=== PATIENT | male | born 1960 | race Caucasian/White ===

== ENCOUNTER 2023-04-16 09:27 | Outpatient (RCR) | payer OTHER, SELFPAY | END 2023-04-16 23:59 | disposition home or self-care (01) | LOC: RPT 09:27 | PROVIDERS: ATTENDING PHYSICIAN Family Medicine | DX: M25.512 Pain in left shoulder (principal); Z73.6 Limitation of activities due to disability | CPT/HCPCS: 97110; 97140; 97161 ==

== ENCOUNTER 2023-04-24 15:59 | Outpatient (RCR) | payer OTHER, SELFPAY | END 2023-04-24 23:59 | disposition home or self-care (01) | LOC: RPT 15:59 | PROVIDERS: ATTENDING PHYSICIAN Family Medicine | DX: M25.512 Pain in left shoulder (principal); Z73.6 Limitation of activities due to disability | CPT/HCPCS: 97010; 97110; 97140 ==

== ENCOUNTER → 2023-08-18 07:26 | Outpatient (REF) | payer OTHER, SELFPAY | LOC: HWRAD 07:26 | PROVIDERS: ATTENDING PHYSICIAN Family Medicine | DX: R31.9 Hematuria, unspecified (principal) | CPT/HCPCS: 74176 ==

== ENCOUNTER → 2023-09-03 06:34 | Outpatient (REF) | payer OTHER, SELFPAY | LOC: MRI 06:34 | PROVIDERS: ATTENDING PHYSICIAN Specialist; FAMILY PHYSICIAN Family Medicine | DX: M25.512 Pain in left shoulder (principal) | CPT/HCPCS: 73221 ==

== ENCOUNTER → 2023-10-09 07:43 | Outpatient (REF) | payer OTHER, SELFPAY | LOC: HWRAD 07:43 | PROVIDERS: ATTENDING PHYSICIAN Specialist; FAMILY PHYSICIAN Family Medicine | DX: N20.1 Calculus of ureter (principal); N20.0 Calculus of kidney | CPT/HCPCS: 76775 ==

== ENCOUNTER → 2024-01-16 15:40 | Outpatient (REF) | payer OTHER, SELFPAY | LOC: HWRAD 15:40 | PROVIDERS: ATTENDING PHYSICIAN Specialist; FAMILY PHYSICIAN Family Medicine | DX: N20.1 Calculus of ureter (principal); N20.0 Calculus of kidney | CPT/HCPCS: 74176 ==

== ENCOUNTER 2024-02-04 06:20 | Day surgery (SDC) | payer OTHER, SELFPAY ==
[2024-01-26 08:26] VITALS: BMI 33.8
[2024-01-26 08:55] LABS: Hematocrit 45.2 % (39.0-52.0); Mean Corp Hgb Conc. 33.2 g/dL (33.0-37.0); Mean Corpuscular Hgb 29.2 pg (27.0-31.0); Mean Corpuscular Volume 88.1 fL (80.0-94.0); Mean Platelet Volume 9.7 fL (7.4-10.4); Platelet Count 308 10^3/uL (130-400); Red Blood Cell Count 5.13 10^6/uL (4.70-6.10); Red Cell Dist. Width 13.4 % (11.5-14.5); White Blood Cell Count 5.1 10^3/uL (4.8-10.8)
[2024-01-26 09:21] LABS: Blood Urea Nitrogen 25 mg/dl (9-20); Calcium 9.4 mg/dl (8.4-10.2); Carbon Dioxide 28 mmol/L (22-30); Chloride 102 mmol/L (98-107); Estimated Creatinine Clearance 95 ml/min; Glucose 165 mg/dl (70-99); Potassium 4.1 mmol/L (3.5-5.1); Sodium 141 mmol/L (135-145); eGFR > 60.00
[2024-02-04] VITALS (7 sets, daily range): BP systolic 110–159; BP diastolic 68–95; BMI 33.8
[2024-02-04 09:00] LABS: Glucose - Point of Care 180 mg/dl (70-99)
[2024-02-04] MEDS: TYLENOL 1000 MG PO (10:18)
[2024-02-04 11:38] LABS: Glucose - Point of Care 140 mg/dl (70-99)
[2024-02-04] MEDS: Pyridium 200 MG PO (12:50)
[2024-02-04] MEDS: FLOMAX 0.4 MG PO (13:41)
[2024-02-04] MEDS: TORADOL 15 MG IV (13:41)
[2024-02-09 11:53] LABS: Stone Analysis Mass 85 mg
== END 2024-02-04 14:16 | disposition home or self-care (01) ==
LOC: SDS 06:20
PROVIDERS: ATTENDING PHYSICIAN Specialist; FAMILY PHYSICIAN Family Medicine
DX: N20.2 Calculus of kidney with calculus of ureter (principal); R31.0 Gross hematuria
CPT/HCPCS: 52356; 36415; 74018; 76000; 80048; 82365; 82962; 85027; 93005; C1894; C2617

== ENCOUNTER → 2024-09-30 14:24 | Outpatient (REF) | payer MEDICARE, SELFPAY | LOC: HWRAD 14:24 | PROVIDERS: ATTENDING PHYSICIAN Family Medicine | DX: R10.9 Unspecified abdominal pain (principal) | CPT/HCPCS: 74176 ==

== ENCOUNTER 2024-12-15 06:16 | Day surgery (SDC) | payer MEDICARE, SELFPAY ==
[2024-12-15 07:21] LABS: Glucose - Point of Care 109 mg/dl (70-99)
== END 2024-12-15 08:52 | disposition home or self-care (01) ==
LOC: GI 06:16
PROVIDERS: ATTENDING PHYSICIAN Internal Medicine
DX: Z12.11 Encounter for screening for malignant neoplasm of colon (principal); K64.8 Other hemorrhoids; K57.30 Diverticulosis of large intestine without perforation or abscess without bleeding; D12.2 Benign neoplasm of ascending colon; K63.5 Polyp of colon
CPT/HCPCS: 45380; 82962; 88305

== ENCOUNTER → 2025-01-25 14:45 | Outpatient (REF) | payer MEDICARE, SELFPAY | LOC: HWRAD 14:45 | PROVIDERS: ATTENDING PHYSICIAN Family Medicine | DX: R10.20 Pelvic and perineal pain unspecified side (principal); R82.998 Other abnormal findings in urine | CPT/HCPCS: 74176 ==